=== PATIENT | male | born 1975 | race Caucasian/White ===

== ENCOUNTER 2023-09-05 09:37 | Emergency (ER) | payer MEDICARE, MEDICAID, SELFPAY ==
--- NOTE | 2023-09-05 09:39 | XRR_ITS ---
PROCEDURE INFORMATION: Exam: XR Left Ankle Exam date and time: 09/05/2023 10:01 AM Age: 48 years old Clinical indication: Injury or trauma; Other: Jumped off moving trailer; Blunt trauma; Ankle; Left TECHNIQUE: Imaging protocol: Radiologic exam of the left ankle. Views: 3 or more views. COMPARISON: No relevant prior studies available. FINDINGS: Bones/joints: Couple of small thin cortical fragments adjacent to the medial malleolus and medial talus. Mineralization is normal and joints are maintained with minimal spurring of the anterior tibial plafond and trace Achilles insertional enthesophyte. Soft tissues: Medial ankle soft tissue swelling. Effacement of Kager's fat. XR/XR ankle LT min 3V* [id number] IMPRESSION: 1. Medial ankle injury with small cortical avulsion fractures. 2. Effaced Kager's fat is nonspecific, but may represent posttraumatic edema or hematoma.
[2023-09-05 09:53] VITALS: BP 172/119; PULSE 104; RESP 18; TEMP 36.8; O2SAT 93; BMI 31.5
[2023-09-05 09:59] VITALS: O2SAT 98
--- NOTE | 2023-09-05 09:59 | ED_ITS ---
HPI - Extremity Injury (Lower) General: Chief Complaint: Extremity Injury, Lower Stated Complaint: fall, left ankle injury Time Seen by Provider: 09/05/23 09:41 Source: patient Mode of arrival: wheelchair Limitations: no limitations History of Present Illness: Patient is a 48-year-old male who presents to ED today for evaluation of a left foot and ankle injury that he sustained just prior to arrival after jumping off of a moving trailer. Patient states he is able to bear a very small amount of weight on the ankle but is exquisitely tender. He has no other injuries or complaints at this time. complaint: ankle injury and foot injury Onset (ago): hour(s) Injury: Left: ankle and foot Place: home Severity: moderate Relieving factors: immobilization Exacerbating factors: weight bearing, movement and palpation Context: fall Associated symptoms: Reports inability to bear weight Other symptoms: none Review of Systems Musc: Reports: extremity pain (L foot), joint pain (L ankle) and joint swelling (L ankle) Neuro: Denies: numbness in extremities or sensory changes Physical Exam Const: COMMON NORMALS: no acute distress, no limitations, healthy appearing, alert and well nourished Extremity: COMMON NORMALS: capillary refill normal and no calf tenderness GENERAL: Yes normal exam except as noted LEFT LOWER EXTREMITY: Yes ankle joint (tenderness/swelling throughout ankle joint more so medially) Left ankle: Yes ROM (limited secondary to pain) and Yes neurovascular exam (normal) and Yes foot & digits (TTP proximal dorsal foot; no obvious swelling noted) Left foot and digits: Yes neurovascular exam (normal) Neuro: COMMON NORMALS: moves all extremities, no focal motor deficits and no sensory deficits noted SENSORIUM/ORIENTATION: Yes alert Skin: COMMON NORMALS: no rashes or lesions noted GENERAL SKIN EXAM: no rashes or lesions noted Course Vital Signs: Vital signs: Vital Signs Temperature 98.2 F 09/05/23 09:53 Pulse Rate 104 H 09/05/23 09:53 Respiratory Rate 18 09/05/23 09:53 Blood Pressure 172/119 09/05/23 09:53 Pulse Oximetry 98 09/05/23 09:59 Oxygen Delivery Me thod Room Air 09/05/23 09:59 MDM - Extremity Injury (Lower) Medical Decision Making Personal interpretations of left foot/ankle XRs show some avulsion fragments seen on ankle films with donor site most likely from the talus. Patient will be splinted, given crutches with instructions for no weightbearing, and will follow-up with orthopedics/podiatry for further evaluation. XR interpretation done by ED provider, pending radiology final review Discharge Plan Discharge Patient Disposition: Home Clinical Impression: Avulsion fracture of left talus Qualifiers: Encounter type: initial encounter Fracture type: closed Fracture alignment: nondisplaced Qualified Code(s): S92.155A - Nondisplaced avulsion fracture (chip fracture) of left talus, initial encounter for closed fracture Condition: Stable Prescriptions: New hydrocodone-acetaminophen 5-325 mg tablet 1 tab PO Q6H PRN (Reason: pain) Qty: 14 0RF Discharge Orders: Discharge ED (Routine); Ordered 09/05/23 Ordered By: Dionne Dodd Referrals: Lucio Aguirre DO [Primary Care Provider] - Patient Instructions: Opioid Safety, Pain Management Activity Restrictions/Additional Instructions: As we discussed you need to stay in your splint and no weightbearing until told otherwise by orthopedics. Case management should reach out to you later this week to help set you up with this follow-up appointment. Coding Level of Care Code ED Certified Green Building Engineer for Arlene Holcomb
--- NOTE | 2023-09-05 09:59 | XRR_ITS ---
PROCEDURE INFORMATION: Exam: XR Left Foot Exam date and time: 09/05/2023 10:02 AM Age: 48 years old Clinical indication: Injury or trauma; Other: Jumped off moving trailer; Blunt trauma; Foot; Left TECHNIQUE: Imaging protocol: Radiologic exam of the left foot. Views: 3 or more views. COMPARISON: CR XR ankle LT min 3V* [id number] 09/05/2023 10:01 AM FINDINGS: Bones/joints: No acute fracture or dislocation. Mineralization is normal. Joint spacing and alignment are maintained. Minimal spurring of the anterior tibial plafond and trace Achilles insertional enthesophyte. Soft tissues: Effaced Kager's fat as seen on comparison ankle radiographs. Medial ankle soft tissue swelling. XR/XR foot LT min 3V* [id number] IMPRESSION: No acute fracture or dislocation of the foot.
[2023-09-05 10:41] VITALS: RESP 18; O2SAT 91
[2023-09-05] MEDS: morphine 4 mg/mL SDV 1 mL IM (10:41)
[2023-09-05 10:42] VITALS: BP 171/114; PULSE 98; RESP 18; O2SAT 90
[2023-09-05 10:50] VITALS: BP 171/114; PULSE 104; RESP 18; O2SAT 90
--- NOTE | 2023-09-05 13:14 | PC.SOCIAL ---
Ortho Referral Referral to clinic at this time. Clinic to contact patient with appt date/time.
== END 2023-09-05 10:57 | disposition home or self-care (01) ==
PROVIDERS: Emergency Provider Physician Assistant; PCP Family Medicine
DX: S92.155A Nondisplaced avulsion fracture (chip fracture) of left talus, initial encounter for closed fracture (principal); W17.89XA Other fall from one level to another, initial encounter
CPT/HCPCS: 29515; 73610; 73630; 96372; 99284; J2270

== ENCOUNTER 2023-09-06 16:05 | Outpatient (CLI) | payer MEDICARE, MEDICAID, SELFPAY | END 2023-09-06 16:06 | disposition home or self-care (01) | LOC: SPT 16:07 | PROVIDERS: PCP Family Medicine; Visit Provider Podiatrist Foot & Ankle Surgery | DX: Z46.89 Encounter for fitting and adjustment of other specified devices (principal); S92.155D Nondisplaced avulsion fracture (chip fracture) of left talus, subsequent encounter for fracture with routine healing; X58.XXXD Exposure to other specified factors, subsequent encounter | CPT/HCPCS: 97760; 99203; L4361 ==

== ENCOUNTER 2023-09-20 14:59 | Outpatient (CLI) | payer MEDICARE, MEDICAID, SELFPAY | END 2023-09-20 15:00 | disposition home or self-care (01) | LOC: SPT 15:00 | PROVIDERS: PCP Family Medicine; Visit Provider Podiatrist Foot & Ankle Surgery | DX: Z46.89 Encounter for fitting and adjustment of other specified devices (principal); S92.152D Displaced avulsion fracture (chip fracture) of left talus, subsequent encounter for fracture with routine healing; X58.XXXD Exposure to other specified factors, subsequent encounter | CPT/HCPCS: 97760; 99213; L1902 ==

== ENCOUNTER 2025-02-25 22:24 | Observation (INO) | payer MEDICARE, SELFPAY ==
[2025-02-25 22:26] VITALS: BP 168/105; PULSE 85; RESP 18; TEMP 36.8; O2SAT 95; BMI 33.1
--- NOTE | 2025-02-25 22:31 | ECG_ITS ---
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 Measurements Intervals [place] Rate: 91 P: 67 [place]: 128 QRS: 70 QRSD: 99 T: -61 QT: 338 QTc: 417 Interpretive Statements SINUS RHYTHM MODERATE T-WAVE ABNORMALITY, CONSIDER LATERAL ISCHEMIA [-0.1+ mV T-WAVE IN I/aVL/V5/V6] MODERATE T-WAVE ABNORMALITY, CONSIDER INFERIOR ISCHEMIA [-0.1+ mV T-WAVE IN II/aVF] No previous ECG available for comparison Electronically Signed On 02-26-2025 17:34:35 CDT by Geraldo Hammond M.D. [email or web address] [id number]
--- NOTE | 2025-02-25 22:36 | XRR_ITS ---
PROCEDURE INFORMATION: Exam: XR Chest Exam date and time: 02/25/2025 10:50 PM Age: 49 years old Clinical indication: Chest pressure; Chest pain/pressure; HTN; Elevated hr TECHNIQUE: Imaging protocol: Radiologic exam of the chest. Views: 1 view. COMPARISON: No relevant prior studies available. FINDINGS: Lungs: Unremarkable. No consolidation. Calcified right lung granulomas. Pleural spaces: Unremarkable. No pleural effusion. No pneumothorax. Heart/Mediastinum: Unremarkable. No cardiomegaly. Bones/joints: Unremarkable. XR/XR chest 1V portable [id number] IMPRESSION: No acute findings.
--- NOTE | 2025-02-25 22:56 | W.ED.CHESTPA ---
HPI - Chest Pain General: Chief Complaint: Chest Pain Stated Complaint: Chest Pressure Time Seen by Provider: 02/25/25 22:43 History of Present Illness: 49-year-old man with history of hypertension,, hyperlipidemia who presents to the emergency room with chest pain. He says he has been having a mild chest pressure. He feels slightly short of breath. Says his blood pressure has been elevated and has been keeping a log. His doctor had increased his lisinopril recently and he took an extra dose today but his pressure was still up and he had also developed the chest pressure so he came to the emergency room. No new cough. No nausea or vomiting. No abdominal pain. No altered mental status. Related Data Home Medications ?Medication ?Instructions ?Recorded ?Confirmed albuterol sulfate 90 mcg/actuation g inhalation 09/06/23 08/16/24 aerosol inhaler atorvastatin 20 mg tablet tab PO 09/06/23 08/16/24 budesonide-formoterol HFA 160 g inhalation 09/06/23 08/16/24 mcg-4.5 mcg/actuation aerosol inhaler (Symbicort) cyclobenzaprine 10 mg tablet ea PO 09/06/23 08/16/24 esomeprazole magnesium 40 mg ea PO 09/06/23 08/16/24 capsule,delayed release levofloxacin 500 mg tablet tab PO 09/06/23 08/16/24 prednisone 20 mg tablet tab PO 09/06/23 08/16/24 quetiapine 200 mg tablet ea PO 09/06/23 08/16/24 testosterone cypionate 200 mg/mL 200 mg SUBCUT 09/06/23 08/16/24 intramuscular oil Previous Rx's ?Medication ?Instructions ?Recorded hydrocodone 5 mg-acetaminophen 325 1 tab PO Q6H PRN pain #14 tabs 09/05/23 mg tablet Cam Boot to left #1 ea 09/06/23 hydrocodone 5 mg-acetaminophen 325 1 tab PO Q8H PRN pain 7 days #21 09/06/23 mg tablet tabs ASO to left #1 ea 09/20/23 hydrocodone 5 mg-acetaminophen 325 1 tab PO Q6H PRN pain 5 days #20 08/16/24 mg tablet tabs prednisone 20 mg tablet 20 mg PO DAILY 5 days #15 tabs 08/16/24 Allergies Allergy/AdvReac Type Severity Reaction Status Date / Time Sulfa (Sulfonamide Allergy ADR-Nausea Verified 08/16/24 11:57 Antibiotics) Review of Systems Narrative: Constitutional symptoms: Negative except as documented in HPI. Skin symptoms: Negative except as documented in HPI. Eye symptoms: Negative except as documented in HPI. ENMT symptoms: Negative except as documented in HPI. Respiratory symptoms: Negative except as documented in HPI. Cardiovascular symptoms: Negative except as documented in HPI. Gastrointestinal symptoms: Negative except as documented in HPI. Genitourinary symptoms: Negative except as documented in HPI. Musculoskeletal symptoms: Negative except as documented in HPI. Neurologic symptoms: Negative except as documented in HPI. Psychiatric symptoms: Negative except as documented in HPI. Endocrine symptoms: Negative except as documented in HPI. PFSH ED PFSH: Social History Smoking and tobacco/nicotine status: unknown if used tobacco/nicotine Physical Exam Narrative: EXAM NARRATIVE: General: Alert, no acute distress. Skin: Warm, dry. Head: Normocephalic, atraumatic. Neck: Supple, trachea midline. Eye: Extraocular movements are intact. Ears, nose, mouth and throat: mucosa moist. Cardiovascular: Regular, Normal peripheral perfusion. Respiratory: Lungs are clear to auscultation, respirations are non-labored, breath sounds are equal, Symmetrical chest wall expansion. Gastrointestinal: Soft, Nontender, Non distended Musculoskeletal: Normal ROM, no deformity. Neurological: Alert and oriented, No focal neurological deficit observed. Psychiatric: Cooperative, appropriate mood & affect. Course Vital Signs: Vital signs: Vital Signs Temperature 98.2 F 02/25/25 22:26 Pulse Rate 105 H 02/26/25 00:23 Respiratory Rate 23 H 02/26/25 00:23 Blood Pressure 138/89 02/26/25 00:23 Pulse Oximetry 94 02/26/25 00:23 Oxygen Delivery Me thod Room Air 02/25/25 23:18 MDM - Chest Pain Medical Decision Making Differential diagnosis for patient with chest pain includes but is not limited to and based on the above HPI, review of systems and physical exam: Pneumonia. unstable angina. angina. Acute coronary syndrome / CT. Pulmonary embolism. Costochondritis / musculoskeletal. Pleurisy. Pericarditis. Esophageal spasm. Pancreatis. Cholecystitis. Orders placed to evaluate differential diagnosis based on the above differential, HPI and physical exam EKG: Time 2230. Rate 91. Normal sinus rhythm, nonspecific ST changes, no ectopy, normal OK & QRS intervals, This was reviewed and interpreted by myself the ER physician at 2234. No previous EKGs for comparison Chest x-ray: No acute process. No infiltrate. No pneumothorax. This was reviewed and interpreted by myself the emergency room physician. I also reviewed the radiology report. Lab Review: Laboratory results were reviewed and interpreted by myself the emergency room physician. No leukocytosis. No anemia. Mild renal insufficiency with a BUN/creatinine of 13 and 1.3. No comparisons. Initial troponin is negative. HEART Pathway for Early Discharge in Acute Chest Pain from [employer] on 02/26/2025 All calculations should be rechecked by clinician prior to use RESULT SUMMARY: 5 points HEART Pathway Score High risk 12-65% 30-day MACE Admit to hospital or observation. Further testing indicated. INPUTS: History ?> 1 = Moderately suspicious EKG ?> 1 = Non-specific repolarization disturbance Age ?> 1 = 45-64 Risk factors ?> 2 = >= risk factors or history of atherosclerotic disease Initial troponin ?> 0 = <=ormal limit I reviewed the patient's medical record. No records available here. Reexamination: Patient remained stable. No increased work of breathing. No altered mental status. No focal motor deficits. Patient's chest pain and blood pressure improved with nitroglycerin. No increased work of breathing. No altered mental status. Consultation: I spoke with Dr. Land who agrees to admission. Assessment and plan: Chest pain ?Blood pressure and pain improved with nitroglycerin. -I discussed the patient with the hospitalist on-call who is admitting the patient. - Discussed findings and plan with patient. Answered any questions. - All laboratory values were reviewed and interpreted personally by myself, the ER physician - All imaging was reviewed and interpreted personally by myself, the ER physician. - Evaluation and treatment of this problem were appropriate in the emergency setting Lab Data 02/25/25 23:20 02/25/25 23:20 Radiology Impressions Chest X-Ray 02/25/25 22:36 IMPRESSION: No acute findings. Laboratory Results WBC 8.84 10^3/uL (3.29-11.43) 02/25/25 23:20 RBC 5.18 10^6/uL (3.85-5.65) 02/25/25 23:20 Hgb 15.50 g/dL (11.27-16.99) 02/25/25 23:20 Hct 45.0 % (37-53) 02/25/25 23:20 MCV 86.9 fl (82-101) 02/25/25 23:20 MCH 29.9 pg (27-33) 02/25/25 23:20 MCHC 34.4 g/dL (30-55) 02/25/25 23:20 RDW 12.7 % (12.1-15.1) 02/25/25 23:20 Plt Count 254 10^3/cmm (157-399) 02/25/25 23:20 MPV 10.5 fL (7.4-10.4) H 02/25/25 23:20 Neut % (Auto) 85.3 % 02/25/25 23:20 Lymph % (Auto) 9.3 % 02/25/25 23:20 [place] % (Auto) 3.6 % 02/25/25 23:20 Eos % (Auto) 0.9 % 02/25/25 23:20 Baso % (Auto) 0.3 % 02/25/25 23:20 Neut # (Auto) 7.54 10^3/uL (1.8-7.7) 02/25/25 23:20 Lymph # (Auto) 0.8 10^3/uL (0.8-4.8) 02/25/25 23:20 [place] # (Auto) 0.3 10^3/uL (0.2-0.9) 02/25/25 23:20 Eos # (Auto) 0.1 10^3/uL (0.0-0.8) 02/25/25 23:20 Baso # (Auto) 0.0 10^3/uL (0.0-0.1) 02/25/25 23:20 Nucleated RBC % (auto) 0 % 02/25/25 23:20 Nucleated RBCs # 0.0 /100WBC 02/25/25 23:20 Sodium 139 mmol/L (136-145) 02/25/25 23:20 Potassium 3.6 mmol/L (3.5-5.1) 02/25/25 23:20 Chloride 102 mmol/L (98-107) 02/25/25 23:20 Carbon Dioxide 22 mmol/L (22-29) 02/25/25 23:20 Anion Gap 18.6 (5-19) 02/25/25 23:20 BUN 13 mg/dL (6-20) 02/25/25 23:20 Creatinine 1.3 mg/dL (0.7-1.2) H 02/25/25 23:20 GFR Calculation 58.9 mL/min (90-130) L 02/25/25 23:20 Glucose 196 mg/dL (65-115) H 02/25/25 23:20 Calculated Osmolality 294 mOsm/kg (285-295) 02/25/25 23:20 Calcium 9.6 mg/dL (8.5-10.5) 02/25/25 23:20 Total Bilirubin 0.4 mg/dL (0.15-1.2) 02/25/25 23:20 AST 18 U/L (0-40) 02/25/25 23:20 ALT 31 U/L (0-41) 02/25/25 23:20 Alkaline Phosphatase 77 U/L (40-130) 02/25/25 23:20 Troponin T Baseline 7 ng/L (0-15) 02/25/25 23:20 NT-Pro-B Natriuret Pep 37 pg/mL (0-125) 02/25/25 23:20 Total Protein 7.3 g/dL (6.6-8.7) 02/25/25 23:20 Albumin 4.9 g/dL (3.5-5.2) 02/25/25 23:20 Globulin 2.4 g/dL (1.3-4.6) 02/25/25 23:20 All radiology interpretation(s) finalized by discharge Discharge Plan Discharge Patient Disposition: Placed in Observation Clinical Impression: Chest pain Coding Level of Care Code ED Electric Organ Assembler And Checker for Arlene Holcomb
[2025-02-25 23:18] VITALS: BP 153/98; PULSE 88; RESP 16; O2SAT 92
[2025-02-25] MEDS: nitroglycerin 0.4 mg sublingual Tablet SUBLINGUAL (23:19)
[2025-02-25] MEDS: aspirin 81 mg Chew Tablet 324 MG PO (23:19)
[2025-02-25 23:35] LABS: Basophils % 0.3 %; Eosinophils # 0.1 10^3/uL (0.0-0.8); Eosinophils % 0.9 %; Lymphocytes # 0.8 10^3/uL (0.8-4.8); Lymphocytes % 9.3 %; Mean Corpuscular HGB Conc 34.4 g/dL (30-55); Mean Corpuscular Hemoglobin 29.9 pg (27-33); Mean Corpuscular Volume 86.9 fl (82-101); Mean Platelet Volume 10.5 fL (7.4-10.4); Monocytes # 0.3 10^3/uL (0.2-0.9); Monocytes % 3.6 %; Neutrophils # 7.54 10^3/uL (1.8-7.7); Neutrophils % 85.3 %; Nucleated Red Blood Cells % 0 %; Platelet Count 254 10^3/cmm (157-399); Red Blood Count 5.18 10^6/uL (3.85-5.65); Red Cell Distribution Width 12.7 % (12.1-15.1); White Blood Count 8.84 10^3/uL (3.29-11.43)
[2025-02-25 23:44] LABS: Troponin(5th) Baseline 7 ng/L (0-15)
[2025-02-25 23:59] LABS: Alanine Aminotransferase 31 U/L (0-41); Albumin Level 4.9 g/dL (3.5-5.2); Alkaline Phosphatase 77 U/L (40-130); Anion Gap 18.6 (5-19); Aspartate Amino Transferase 18 U/L (0-40); Blood Urea Nitrogen 13 mg/dL (6-20); Calcium 9.6 mg/dL (8.5-10.5); Carbon Dioxide 22 mmol/L (22-29); Chloride 102 mmol/L (98-107); Creatinine Clr Calc Pharmacy 84.2468; Globulin 2.4 g/dL (1.3-4.6); Glomerular Filtration Rate 58.9 mL/min (90-130); Glucose 196 mg/dL (65-115); NT Pro B Type Natriuretic Pept 37 pg/mL (0-125); Osmolality Calculated 294 mOsm/kg (285-295); Potassium 3.6 mmol/L (3.5-5.1); Sodium 139 mmol/L (136-145); Total Bilirubin 0.4 mg/dL (0.15-1.2); Total Protein 7.3 g/dL (6.6-8.7)
[2025-02-26] VITALS (41 sets, daily range): BP systolic 138–180; BP diastolic 89–117; PULSE 72–108; RESP 12–25; TEMP 36.6–36.9; O2SAT 91–98; BMI 31.7
--- NOTE | 2025-02-26 00:35 | ECG_ITS ---
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1975 Requested By: Ansley Murphy Order Number: [id number] Reading MD: SUSANNA FRANKS Measurements Intervals [place] Rate: 72 P: 62 [place]: 147 QRS: 74 QRSD: 96 T: 64 QT: 384 QTc: 421 Interpretive Statements SINUS RHYTHM ST DEVIATION AND MODERATE T-WAVE ABNORMALITY, CONSIDER LATERAL ISCHEMIA [-0.1+ mV T-WAVE IN I/aVL/V5/V6] ST DEVIATION AND MODERATE T-WAVE ABNORMALITY, CONSIDER INFERIOR ISCHEMIA [-0.1+ mV T-WAVE IN II/aVF] Compared to ECG 02/25/2025 22:31:29 No significant changes Electronically Signed On 03-01-2025 21:55:08 CDT by SUSANNA FRANKS [id number] [id number]
--- NOTE | 2025-02-26 01:33 | PM.HP ---
Providers/Chief Complaint Admitting Physician: Eliana Land Primary Care Provider: Lucio Aguirre DO & Dr. Rodriguez Chief Complaint: Chest Pressure History of Present Illness Sonya Phelps . Tony Phelps Jr is a 50 year old male w/ COPD, HTN, HLD, severe GERD, chronic back pain due to hx of 4 back surgeries including L-spine (L3-4-5) fusion & b/l R>>>L sciatica, Anxiety, and MDD, who presented to the ED on the night of 02/25/2025 w/ complaints of chest pain and pressure. The patient states that he has had HTN for at least 20yrs, but refused to take any medications. His PCP put him on 10mg of Lisinopril about 8 months ago. Two to 3 months ago his Lisinopril dose was increased to 20mg. On 02/24/2025 he went to get a steroid injection in his back for sciatic nerve and prior to the procedure, he was found to have a BP of 180/145mmHg. He was told to follow up with his PCP. He called his PCP on 02/25, who increased his Lisinopril to 40mg daily. Since he already took Lisinopril 20mg in the AM, he took another Lisinopril 20mg after 3pm. At 3pm, he noticed that his BP was elevated to 177/111mmHg. His BP worsened to 192/124mmHg around 4:30pm. Towards the evening, he states that he started to feel non-radiating chest pressure and pain as if someone was sitting in his chest. He felt diaphoretic, confused, trembling, and had b/l temporal headaches which was atypical for him. He tends to have frontal headaches. He also complained of severe generalized weakness, as if he would collapse, but not lose consciousness. He endorses chills, SOB,. He denies palpitations, except in the ED when his HR increased to 130bpm. He also denies palpitations, GI or symptoms. He He states that he has had chest pains on and off about 2-3 years but because they come and go, he never did anything about them. In the ED, his vital signs are significant for elevated BP of 168/105, tachycardia of 105bpm, RR of 23. His CXR showed no acute findings. His EKG showed TWI in leads II, III, AVF, V4, V5, and V6; flat Twaves in I & AVL; 1mm ST depressions in V4, V5, and V6. He was given full dose Aspirin 324mg x 1 and 0.4mg of SL NTG, which he says improved his chest pain by 70%. Review of Systems Narrative: Constitutional: (-) fever(s), (+) chills, (-) body aches, (-) change in appetite, (-) change in weight, (-) fatigue, (-) malaise, (-) night sweats, (+) diaphoresis Eyes: (-) change in vision, (-) blurry vision, (-) diplopia, (-) floaters, ENT: (-) ear pain, (-) ear discharge, (-) aural fullness, (-) tinnitus, (-)nasal discharge, (-)nasal congestion, (-) post nasal drip, (-)dysphagia, (-)odynophagia, (-)hoarseness, Card: (+) Chest pain, (+) palpitations, (-) pedal edema, (-) orthopnea, (-) lightheadedness, (-) syncope, (-) pre-syncope, (-) leg pain with exertion Resp: (+)dyspnea, (-)dyspnea on exertion, (-) cough, (-) wheezing, (-) hemoptysis GI: (-) abdominal pain, (-) nausea, (-) vomiting, (-) hematemesis, (-) diarrhea, (-) constipation, (-) hematochezia, (-) melena : (-) flank pain, (-) dysuria, (-) hematuria, (-) urinary urgency, (-) urinary frequency, (-)oliguria, (-) difficulty voiding, MSK: (-) myalgias, (+) arthralgias -chronic back pain Skin/Breast: (-) rash, (-) sores, (-) new lesions, (-) breast tenderness, (-) breast pain, or (-) nipple discharge Neuro: (+) headaches, (-) dizziness, (+) generalized weakness, (-) weakness in the extremities, (-) numbness in extremities, (-) tingling, (-) frequent falls, (-) Slurred speech present, (-) seizure-like activity, Psych: (+) anxiety, (+) depression, (-)paranoia, (-) visual hallucinations, (-) auditory hallucinations, (-)tactile hallucinations, (-) suicidal ideation, (-) homicidal ideation Endo: (-) polyuria, (-) polydipsia, (-) polyphagia, (-)cold intolerance, (+) heat intolerance Heme/Lymph: (-) easy bruising, (-) easy bleeding, (-) petechiae, (-) purpura, (-) enlarged lymph nodes, (-) tender lymph nodes Allergy/Immunlogy: (-) food intolerance, (-) hives/urticaria, (-) itchy/watery eyes, (-) tongue/throat swelling, (-) facial swelling, Medications/Allergies Home Medications ?Medication ?Instructions ?Recorded ?Confirmed ?Last Taken ?Type hydrocodone 5 mg-acetaminophen 325 1 tab PO Q6H PRN pain #14 tabs 09/05/23 08/16/24 Unknown Rx mg tablet [place] to left #1 ea 09/06/23 08/16/24 Unknown Rx albuterol sulfate 90 mcg/actuation g inhalation 09/06/23 08/16/24 Unknown History aerosol inhaler atorvastatin 20 mg tablet tab PO 09/06/23 08/16/24 Unknown History budesonide-formoterol HFA 160 g inhalation 09/06/23 08/16/24 Unknown History mcg-4.5 mcg/actuation aerosol inhaler (Symbicort) cyclobenzaprine 10 mg tablet ea PO 09/06/23 08/16/24 Unknown History esomeprazole magnesium 40 mg ea PO 09/06/23 08/16/24 Unknown History capsule,delayed release hydrocodone 5 mg-acetaminophen 325 1 tab PO Q8H PRN pain 7 days #21 09/06/23 08/16/24 Unknown Rx mg tablet tabs levofloxacin 500 mg tablet tab PO 09/06/23 08/16/24 Unknown History prednisone 20 mg tablet tab PO 09/06/23 08/16/24 Unknown History quetiapine 200 mg tablet ea PO 09/06/23 08/16/24 Unknown History testosterone cypionate 200 mg/mL 200 mg SUBCUT 09/06/23 08/16/24 Unknown History intramuscular oil ASO to left #1 ea 09/20/23 08/16/24 Unknown Rx hydrocodone 5 mg-acetaminophen 325 1 tab PO Q6H PRN pain 5 days #20 08/16/24 08/16/24 Unknown Rx mg tablet tabs prednisone 20 mg tablet 20 mg PO DAILY 5 days #15 tabs 08/16/24 08/16/24 Unknown Rx Allergies Allergy/AdvReac Type Severity Reaction Status Date / Time gabapentin Allergy Unknown Unknown Verified 02/26/25 05:21 pseudoephedrine Allergy Unknown Unknown Verified 02/26/25 05:21 Sulfa (Sulfonamide Allergy ADR-Nausea Verified 08/16/24 11:57 Antibiotics) PFSH Acute PFSH: Medical History (Updated 02/26/25 @ 06:21 by Eliana Land MD) MDD (major depressive disorder) Has taken Prozac and Xanax and many other types of SSRIs etc. He quit taking the meds 2 yrs ago in 2022 and has felt fine since, except for occasional episodes of anxiety Anxiety disorder Has taken Prozac and Xanax and many other types of SSRIs etc. He quit taking the meds 2 yrs ago in 2022 and has felt fine since, except for occasional episodes of anxiety Chronic low back pain with bilateral sciatica GERD (gastroesophageal reflux disease) Hyperlipidemia COPD (chronic obstructive pulmonary disease) HTN (hypertension) Surgical History (Updated 02/26/25 @ 05:46 by Eliana Land MD) History of surgery on upper extremity History of nasal surgery History of appendectomy History of carpal tunnel surgery Family History (Updated 02/26/25 @ 05:41 by Eliana Land MD) Father Diabetes mellitus, type 2 Other Osteoporosis Social History (Updated 02/26/25 @ 05:40 by Eliana Land MD) Smoking and tobacco/nicotine status: current every day tobacco/nicotine user cigarettes Packs smoked per day: 2 Years cigarettes smoked: 34 [ Other cigarette details: started smoking at age 12. Started 2ppd by age 15 to 16. ] Quit status (tobacco/nicotine): has tried quititng Alcohol intake: current Alcohol intake frequency: holidays/special occasions only Alcohol use comment: May 29 and s Maddy. He has the tolerance of a 10yo girl. Substance/Drug Use: current Substance/Drug use type: Marijuana Other substance/drug use details: consumes it as edibles. Smoking chokes him. Quit Meth etc in 05/27/2001 Additional social history: Primarily used (smoked,snorted,IV) and cooked Methamphetamines. Has tried every drug except Heroine, Fentanyl. Marital status: Vitals/I&O/Wt Last Vital Signs Temp 98.2 F 02/25/25 22:26 Pulse 105 H 02/26/25 00:23 Resp 23 H 02/26/25 00:23 BP 138/89 02/26/25 00:23 Pulse Ox 94 02/26/25 00:23 O2 Del Method Room Air 02/25/25 23:18 Weight last 48 hrs Weight 104.78 kg Physical Exam Narrative: Constitutional: GENERAL APPEARANCE: cooperative, comfortable and appears older than stated age; not combative, not disheveled, not ill appearing and not frail appearing HENT: HEAD & SCALP: normocephalic and atraumatic; NOSE: external nose not normal EXTERNAL EAR: no external ears normal MOUTH: Normal oral and palatal mucosa present THROAT: posterior oropharynx normal Eye: PERRL, EOMI, normal conjunctiva b/l Neck: normal visual inspection, trachea midline, No anterior neck swelling, No tracheal deviation, No tracheostomy present, no submandibular swelling, Thyroid normal , cervical ROM normal Lymph: no cervical, supraclavicular LAD Resp: no use of accessory muscles, CTAB, no w/r/r Cardio: RRR, no m/r/g, or clicks. 2+ radial and DP pulses. GI: normoactive bowel sounds, non-tender, non-distended, no guarding, no rigidity, no rebound tenderness, no hepatosplenomegaly. : (-) Brower in place draining urine Back/Pelvis: Deferred Extremity: No clubbing, No cyanosis and No edema Neuro: AO to person, place and time. CN normal except as noted. Normal gait present. 5/5 motor strength present throughout. Normal motor muscle tone present throughout. No tremor noted. No motor abnormalities present. Psych: APPEARANCE: Yes grossly normal ATTITUDE: Yes calm and Yes engaged ACTIVITY/MOTOR BEHAVIOR: Yes appropriate eye contact SPEECH: Yes normal speech MOOD & AFFECT: Yes euthymic mood THOUGHT PROCESS: ___ THOUGHT CONTENT: ___ ATTENTION/CONCENTRATION: Yes attention grossly intact MEMORY/COGNITION: Yes memory grossly intact Data 02/25/25 23:20 02/25/25 23:20 A&P Assessment and plan (1) Unstable angina: Plan Tony Phelps Jr is a 50 year old male w/ COPD, HTN, HLD, severe GERD, chronic back pain due to hx of 4 back surgeries including L-spine (L3-4-5) fusion & b/l R>>>L sciatica, Anxiety, and MDD, who presented to the ED on the night of 02/25/2025 w/ complaints of chest pain and pressure. #Unstable Angina: -The patient gets his care primarily at [facility], and has gotten his care there for over 30 years, so he would really like to go back there. He does not want to have too many extensive tests done here at [facility]. I have informed him that any major decisions would be a joint decision between him and our Continuous Improvement Specialist. -Given his wish to going get his major care done at [facility], I have held off on ordering an ultrasound. -ACS protocol has been initiated w/ Aspirin and Lovenox. F/u labs - TSH/A1c, lipid panel. -Hydralazine IVP prn ordered -Recommend cardiology consult in the morning. #Possible BENTON: Unclear baseline. Ordered IVF. #COPD: Defer resumption of home meds to the Day hospitalist. #HTN: Defer resumption of home meds to the Day hospitalist. #Anxiety/DO: Dx'ed at age 19. On Seroquel daily. Defer resumption of home meds to the Day hospitalist. #Low Libido: On Testosterone. #chronic back pain: hx of 4 back surgeries including L-spine (L3-4-5) fusion & b/l R>>>L sciatica #Tobacco use d/o: Counseled the patient on quitting. Will order nicotine patches and prn lozenges DVT ppx: Lovenox PDMP PDMP Reviewed: Not Reviewed Attestations Medical Necessity Statement*: The patient needs to be hospitalized for unstable angina with concerning EKG changes. He may very well require a heart catheterization. Time Spent in Patient Care: >75 minutes was spent obtaining a very detailed history from the patient and his , given that he is new to this hospital system, examining the patient, reviewing labs, images, formulating a plan, coordinating care, and communicating the plan with to the patient. Coding Level of Care Code 35058 High Time for a total of 75 minutes, includes reviewing past or interval history, examining/interviewing patient, placing orders, counseling patient/family/other support, updating patient/family/other support, discussing plan of care with staff, communicating with other healthcare providers, documenting encounter and coordinating care Diagnoses Unstable angina I20.0
[2025-02-26 02:09] LABS: INR 0.94 (0.8-1.2)
[2025-02-26 02:10] LABS: Partial Thromboplastin Time 28.4 SECONDS (23.9-36.7)
[2025-02-26 02:24] LABS: Bacteria Urine None Seen /hpf; Hyaline Casts Urine 0-4 /lpf; RBC Urine 0-2 /hpf (0-2); Squamous Epithelial Cell Urine 0-5 /hpf (0-5); WBC Urine 0-5 /hpf (0-5)
[2025-02-26 02:33] LABS: Amphetamines Screen Urine Negative (Negative); Barbiturates Screen Urine Negative (Negative); Benzodiazepines Screen Urine Negative (Negative); Cocaine Screen Urine Negative (Negative); Opiate Screen Urine Negative (Negative); PCP Screen Urine Negative (Negative); Protein Urine Neg (Negative); THC Screen Urine Positive (Negative); Urine Appearance Clear (CLEAR); Urine Color Yellow (Yellow); pH Urine 5 (5-7)
[2025-02-26 02:34] LABS: Add Urine Microscopic? YES; Bilirubin Urine Neg (Negative); Blood Urine Neg (Negative); Glucose Urine UA Norm (Normal); Ketones Urine Negative (Negative); Leukocyte Esterase Urine Negative (Negative); Nitrate Urine Negative (Negative); Urobilinogen Urine Neg (Negative)
[2025-02-26] MEDS: sodium chloride 0.9% 1,000 ML 250 ML IV (03:13)
[2025-02-26] MEDS: enoxaparin 100 mg/mL Syringe SUBCUT ×2 (03:13→15:12)
--- NOTE | 2025-02-26 04:36 | ECG_ITS ---
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
[2025-02-26] MEDS: pantoprazole 40 mg SDV IVP (04:55)
[2025-02-26] MEDS: HYDROmorphone 0.5 MG/0.5 ML INJ 1 MG IVP ×3 (04:56→17:55)
[2025-02-26] MEDS: hyDRALAzine 20 mg/mL INJ 1 mL 10 MG IVP ×3 (05:34→17:54)
[2025-02-26] MEDS: nicotine 21 mg Patch 1 PATCH TRANSDERMA (05:44)
[2025-02-26 05:47] LABS: Basophils % 0.3 %; Eosinophils # 0.1 10^3/uL (0.0-0.8); Eosinophils % 0.6 %; Hematocrit 44.4 % (37-53); Mean Corpuscular HGB Conc 34.7 g/dL (30-55); Mean Corpuscular Hemoglobin 30.1 pg (27-33); Mean Corpuscular Volume 86.9 fl (82-101); Mean Platelet Volume 10.5 fL (7.4-10.4); Monocytes # 0.4 10^3/uL (0.2-0.9); Monocytes % 4.8 %; Neutrophils # 7.37 10^3/uL (1.8-7.7); Neutrophils % 82.9 %; Nucleated Red Blood Cells % 0 %; Platelet Count 271 10^3/cmm (157-399); Red Blood Count 5.11 10^6/uL (3.85-5.65); Red Cell Distribution Width 12.9 % (12.1-15.1)
[2025-02-26 06:07] LABS: Troponin 5 6HR 6.38 ng/L (0-15)
[2025-02-26 06:09] LABS: Troponin 5 6HR Delta -0.62 ng/L (0-12)
[2025-02-26 06:12] LABS: Alanine Aminotransferase 29 U/L (0-41); Albumin Level 4.7 g/dL (3.5-5.2); Alkaline Phosphatase 73 U/L (40-130); Anion Gap 16.8 (5-19); Aspartate Amino Transferase 17 U/L (0-40); Blood Urea Nitrogen 13 mg/dL (6-20); Calcium 9.2 mg/dL (8.5-10.5); Carbon Dioxide 24 mmol/L (22-29); Chloride 104 mmol/L (98-107); Creatinine Clr Calc Pharmacy 96.3975; Globulin 2.8 g/dL (1.3-4.6); Glomerular Filtration Rate 71.1 mL/min (90-130); Glucose 116 mg/dL (65-115); Magnesium 2.2 mg/dL (1.7-2.3); Osmolality Calculated 293 mOsm/kg (285-295); Phosphorus 3.7 mg/dL (2.5-4.5); Potassium 3.8 mmol/L (3.5-5.1); Sodium 141 mmol/L (136-145); Total Bilirubin 0.5 mg/dL (0.15-1.2); Total Protein 7.5 g/dL (6.6-8.7)
[2025-02-26 06:13] LABS: Chol HDL Ratio 5.81 mg/dL (1.0-5.00); Cholesterol 279 mg/dL (0-200); HDL Cholesterol 48 mg/dL (60-100); LDL Cholesterol Calculated 206 mg/dL (50-129); LDL HDL Ratio 4.29 RATIO (0.00-3.22); Triglycerides 126 mg/dL (0-150)
[2025-02-26 06:21] LABS: Estmated Average Glucose 108; Hemoglobin A1C 5.4 % (4.0-6.0)
[2025-02-26 06:23] LABS: Free T4 Free Thyroxine 0.99 ng/dL (0.82-1.77); Thyroid Stimulating Hormone 1.02 uIU/mL (0.27-4.20)
[2025-02-26] MEDS: nicotine 4 mg lozenge MUCOUS MEM ×5 (08:18→19:24)
[2025-02-26] MEDS: aspirin 81 mg Chew Tablet PO (08:18)
--- NOTE | 2025-02-26 10:25 | XACV_ITS ---
Exam Room: 2 Ht: 178 cm Wt: 100 kg BSA: 2.25 m2 Gender: Male : 1975 Any Known Allergies: Sulfa Exam Priority: Routine Procedure(s): Procedure Description: Diagnostic procedure Procedure Description: Left Heart Catheterization Procedure Description: Left ventriculography Procedure Description: Coronary Angiography Diagnostic Cath Status: Urgent Diagnostic Findings * Very short left main, almost separate ostia of LAD and left circumflex arteries. No significant disease noted in Left Anterior Descending, Right, or Circumflex coronary arteries. * Coronary angiography shows right dominance. Conclusions 1. Very short left main, almost separate ostia of LAD and left circumflex arteries. No significant disease noted in Left Anterior Descending, Right, or Circumflex coronary arteries. 2. Normal left ventricular systolic function. Ejection fraction of 55%. Recommendations * Aggressive risk factor modification. Blood pressure control. * Outpatient cardiology follow up in 2 weeks. Interventional RX Recommendation: medical therapy and/or counseling Diagnostic RX Recommendation: medical therapy and/or counseling Anticoagulation: Heparin Ventriculography Ejection Fraction: 55.0 % Pressures Phase:Rest AO : 169 / 113 ( 135 ) @ 11:57:00 AM 169 / 106 ( 134 ) @ 12:07:00 PM 169 / 108 ( 136 ) @ 12:07:00 PM LV : 183 / 18 @ 12:05:00 PM 180 / -8 / 18 @ 12:06:00 PM 183 / -8 / 20 @ 12:07:00 PM Valves Phase:DefaultPhase AV : 12.0 @ 11:12:32 AM AV Mean Gradient: 14.0 @ 11:12:32 AM Clinical Evaluation EBL: 5mL-10mL Procedural Details Pre-Procedure Time Out. Identified patient by full name and date of as verbalized by the patient/guarantor. Does the consent match the physician's order: Yes. Accurate & Complete Informed Consent: Yes. Inpatient/Outpatient History & Physical on Chart: Yes. If H&P is completed, is and addenduem needed: No; If yes, is the addendum complete: N/A. Visualize and Verify Site with Patient/Guarantor: N/A. Relevant Radiology Images available: Yes. Pre-op teaching completed and patient verbalized understanding. The risks, benefits, and alternatives of sedation and/or procedure were discussed by physician. The patient agrees to continue. Procedure started. [facility] Clinical Fraility Score: 3: Managing Well. Manager Packaging Indications: Worsening Angina/Unstable Angina. Chest Pain Symptom Assessment: Typical Angina Symptoms. Cardiovascular Instability: No. Correct patient, site and procedure confirmed by cath team. PERRLA. Strong, equal hand hydraulic lift operator bilaterally. Lungs clear x 5 lobes. IV Site on Arrival: 20 gauge in the right anticubital. IV Fluids: 0.9% NaCl at KVO. 900 mL infused prior to sanitation laborer. Pre Procedural Pulses: bilateral radial was 2+. Pre Procedural Pulses: bilateral dorsalis pedis was Doppled. Pre Procedural Pulses: bilateral posterior tibial was Doppled. Oxygen started at 2liters/min via nasal canula. right groin was prepped with chloroprep then draped in the usual sterile fashion. right radial was prepped with chloroprep then draped in the usual sterile fashion. Physician notified. Patient's family in the sanitation laborer waiting room. Dr. Hammond will update at the completion of the procedure. Equipment: 6F - Radial. Cardiac Cath Pack. ACIST Manifold Kit Model BT 2000. Heparinized Saline (2 units/mL), 1000 mL bag. Physician arrived. Baseline sample Acquired. HR: 76 BPM. Physician scrubbed in. Immediate Pre-Procedure Time Out. Correct Patient: Yes; Correct Procedure: Yes; Correct Site: Yes; Correct Patient Position: Yes; Correct Supplies: Yes; Dried Flammable Prep: Yes; Blood Products Available: N/A;. Lidocaine 1% infiltrated to the right radial. Arterial access obtained. A 5 icelandic TIG catheter in over the exchange J wire. Multiple views taken of left coronary artery. Catheter redirected to the RCA. Multiple views taken of right coronary artery. Catheter redirected to the LV. Catheter removed over the exchange J wire. A 5 icelandic Angled Pig catheter in over the exchange J wire. EDP Sample taken: LV 183/1,18; HR: 84 BPM; SpO2: 96%. LV gram performed in SANDERS @ 10 mL/second for a total of 30 mL. EDP Sample taken: LV 180/-9,18; HR: 90 BPM; SpO2: 97%. Pullback taken: LV 183/-9,20; AO 169/106(134); Mean: 14mmHg, Peak to Peak: 12mmHg, SEP: 21sec/min; HR: 85 BPM; SpO2: 97%. Catheter removed over the exchange J wire. Dr. Hammond scrubbed out. A TR Band was successful obtaining hemostatsis at the Right Radial artery insertion site. Post Procedure: Pulses reassessed and unchanged. PERRLA. Strong, equal hand hydraulic lift operator bilaterally. No VTE prophylaxis required. Medication's Wasted: Lidocaine 1% = 18 mL. Medication's Wasted: Nitro = 49.8 mL. Medication's Wasted: Heparin = 1000 units. Medication's Wasted: Other = Versed 1 mg. Total IV fluids: 56 mL. Post-op diagnosis: Non-obstructive CAD. Complications: none. Estimated blood loss: 5mL-10mL. Responsiveness - Normal response to verbal stimuli; alert and oriented, PERRLA. Airway - Unaffected, no intervention required; spontaneous ventilation. Circulation: W/N/L, pulses unchanged. Nausea/Vomiting: No. Medication's Wasted: Other = Fentanyl 100 mcg. Procedure completed. Patient transferred by wheelchair to CPRU. Vital chart was stopped. Access Site Site: Right Radial artery Sheath Size: 6 Fr Hemostasis Method: TR Band Hemostasis Success: Successful Procedure Medications Start: 10:49 AM Stop: 10:49 AM Medication: Versed Amount: 1 mg Route: I.V. Start: 10:49 AM Stop: 10:49 AM Medication: Fentanyl Amount: 50 mcg Route: I.V. Start: 10:53 AM Stop: 10:53 AM Medication: Versed Amount: 1 mg Route: I.V. Start: 10:53 AM Stop: 10:53 AM Medication: Fentanyl Amount: 25 mcg Route: I.V. Start: 10:55 AM Stop: 10:55 AM Medication: Nitrogylcerin Amount: 200 mcg Route: I.A. Start: 10:56 AM Stop: 10:56 AM Medication: Heparin Amount: 5000 units Route: I.V. Start: 10:57 AM Stop: 10:57 AM Medication: Versed Amount: 1 mg Route: I.V. Start: 11:05 AM Stop: 11:05 AM Medication: Fentanyl Amount: 25 mcg Route: I.V. I, the attending physician, have reviewed and verified all procedure medications. Yes, all medications given per verbal order History/Risk Factors Hypertension: Yes Dyslipidemia: Yes Peripheral Arterial Disease (PAD): No Myocardial Infarction (NH): No Obesity: No Renal Disease: No Tobacco Use: Current/Recent(w/in 1 year) Prior Interventions PCI: No CABG: No Valve Surgery: No Report Signatures Finalized by Geraldo Hammond MD on 03/15/2025 09:17 AM
--- NOTE | 2025-02-26 10:43 | W.PM.OPSUD ---
Surgery/Procedure H&P Update DATE OF PROCEDURE: February 26, 2025 DATE H&P PERFORMED: 02/26/25 H&P UPDATE INFORMATION: I have reviewed H&P completed within last 30 days, I have examined patient prior to procedure and No changes to prior documentation PREOP DIAGNOSIS: Unstable angina PRIMARY INDICATION FOR PROCEDURE: Unstable angina PLANNED PROCEDURE: Left heart cath with possible percutaneous coronary intervention PATIENT REASSESSED PRIOR TO SEDATION, WITH NO CHANGE NOTED: Yes PHYSICAL EXAM: alert, oriented x 3, clear to auscultation bilaterally and regular rate & rhythm AIRWAY EVAL/ANESTHESIA PLAN: normal airway, ASA III, Local Anesthesia, Risks, benefits & alternatives of sedation and/or procedure discussed and Patient agrees to continue as planned ADDITIONAL INFORMATION: Moderate sedation
--- NOTE | 2025-02-26 11:11 | PM.PROC ---
Procedure Note: Date of procedure: 02/26/25 Pre-procedure diagnosis: Unstable angina Post-procedure diagnosis: other (Patent coronary arteries) Procedure: Patent coronary arteries. Blood pressure control Performing Provider: Geraldo Hammond Estimated blood loss (mL): 5 Complications: None Condition: stable Disposition: floor Coding Level of Care Code Acute Code for [facility]
--- NOTE | 2025-02-26 11:38 | P.CONIM_ITS ---
<Statement entered by Geraldo Hammond M.D - 02/27/25 12:37> Patient was evaluated and cared for in conjunction with an advanced practice practitioner.? I personally examined the patient and reviewed the chart and all pertinent data including imaging, telemetry, and laboratory results.? I discussed the patient in detail with the advanced practice practitioner.? Please see? their note for complete consult note, testing results and agreed upon plan of care for the patient. Patient has ongoing chest pain event with better blood pressure control. EKG has ST depressions. Concern for unstable angina. We will proceed with coronary angiogram with possible PCI Aggressive blood pressure control GENERAL: Patient is alert, awake and oriented x3. HEART: Regular S1 and S2 LUNGS Clear to auscultation bilaterally. EXTREMITIES: Lower extremities with no edema Providers/Reason For Consult 2 Consulting Physician/Specialty*: Dr. Ngo Reason for Consult*: Unstable angina Requesting Physician: Dr. Franz Attending Physician: Angelica Franz MD Primary Care Provider: Lucio Aguirre DO History of Present Illness History of Present Illness Tony Phelps Jr is a 50 year old male with a history of COPD, current smoker, hypertension, hyperlipidemia, chronic pain, and anxiety presented to the emergency room yesterday with complaints of chest pain and pressure. He states he has had uncontrolled hypertension for a long time but has refused his previous medications for his own personal reasons . His PCP just recently increased his lisinopril to 20 mg but despite this he still had uncontrolled hypertension. He states that he has been having chest pressure on and off for the last 2 years but is gotten worse recently with it feeling like something sitting on his chest. He does not state that he has any relieving or aggravating factors. This does not radiate. Blood pressure on my exam is 156/90. Troponins were negative. He did have some ST depressions on EKG and some T wave inversions in the inferior lateral leads. He was given full dose aspirin, nitroglycerin, which did improve his chest pain. Patient was having chest pressure on my exam. He states it was improved to though. Review of Systems 2 Narrative: Consitutional: denies fever, chills, body aches, or changes in appetite, denies abnormal weight loss Eyes: Denies changes in vision Card: reports mild chest pressure across the chest, palpitations, irregular heart rhythm, edema, syncope, shortness of breath, orthopnea, leg pain with exertion Resp: Denies shortness of breath, denies hemoptysis, denies cough GI: denies abdominal pain, denies nausea or voimting, denies blood in stool : denies blood in urine, denies dysuria Musc: Denies extremity pain, denies limited range of motion or recent injury Skin: Denies rash, lesions, or wounds, denies changes to skin color Neuro: Denies nubmness in extremities, h/a, s/s of stroke [place]: Denies easy bruiding/bleeding Medications/Allergies Home Medications ?Medication ?Instructions ?Recorded ?Confirmed ?Last Taken ?Type Cam Boot to left #1 ea 09/06/23 02/26/25 Unkn own Rx albuterol sulfate 90 mcg/actuation 1 puff inhalation Q 6H PRN 09/06/23 02/26/25 Unknown History aerosol inhaler Shortness Of Breath esomeprazole magnesium 40 mg 40 mg PO QAM 09/06/2302/1702/25/25 History capsule,delayed release quetiapine 200 mg tablet 200 mg PO BEDTIME 09/06/23 0 02/26/25 02/25/25 History testosterone cypionate 200 mg/mL 200 mg SUBCUT Q7D 11/1702/26/25 02/23/25 History intramuscular oil ASO to left #1 ea 09/20/23 02/26/25 Unkn own Rx hydrocodone 5 mg-acetaminophen 325 1 tab PO Q6H PRN pa in 5 days #20 08/16/24 02/26/25 Unknown Rx mg tablet tabs diphenhydramine HCl 25 mg capsule 75 mg PO BEDTIME 02/1702/26/25 02/25/25 History (Benadryl) lisinopril 20 mg tablet 40 mg PO QAM 02/26/2502/25/25 History meloxicam 15 mg tablet 15 mg PO QAM 02/26/2502/26/25 History tizanidine 4 mg tablet 4 mg PO QID PRN Muscle Spasm 02/26/25 02/26/25 Unknown History Allergies Allergy/AdvReac Type Severity Reaction Status Date / Time gabapentin Allergy Unknown Unknown Verified 02/26/25 05:21 pseudoephedrine Allergy Unknown Unknown Verified 02/26/25 05:21 Sulfa (Sulfonamide Allergy ADR-Nausea Verified 08/16/24 11:57 Antibiotics) Current Medications Generic Name Dose Route Start Last Admin Trade Name Freq PRN Reason Stop Dose Admin Aspirin 81 mg 02/26/25 09:00 02/26/25 08:18 Aspirin 81 Mg Chew Tablet PO 81 mg DAILY LOI Administration Enoxaparin Sodium 100 mg 02/26/25 03:00 02/26/25 03:13 Enoxaparin 100 Mg/Ml Syringe SUBCUT 100 mg Q12H LOI Administration Hydralazine HCl 10 mg 02/26/25 04:43 02/26/25 11:35 Hydralazine 20 Mg/Ml Inj 1 Ml IVP 10 mg Q4H PRN Administration HYPERTENSION Hydromorphone HCl 1 mg 02/26/25 04:32 02/26/25 09:01 Hydromorphone 0.5 Mg/0.5 Ml Inj IVP 1 mg Q4H PRN Administration SEVERE PAIN Nicotine 1 patch 02/26/25 05:07 02/26/25 05:44 Nicotine 21 Mg Patch TRANSDERMA 1 patch DAILY PRN Administration NICOTINE WITHDRAWAL Nicotine Polacrilex 4 mg 02/26/25 05:08 02/26/25 08:18 Nicotine 4 Mg Lozenge MUCOUS MEM 4 mg Q2H PRN Administration NICOTINE CRAVINGS Pantoprazole Sodium 40 mg 02/26/25 06:00 02/26/25 04:55 Pantoprazole 40 Mg Sdv IVP 40 mg Q24H LOI Administration PFSH Acute 2 PFSH: Medical History (Updated 02/26/25 @ 11:43 by Dionne Geronimo NP) MDD (major depressive disorder) Has taken Prozac and Xanax and many other types of SSRIs etc. He quit taking the meds 2 yrs ago in 2022 and has felt fine since, except for occasional episodes of anxiety Anxiety disorder Has taken Prozac and Xanax and many other types of SSRIs etc. He quit taking the meds 2 yrs ago in 2022 and has felt fine since, except for occasional episodes of anxiety Chronic low back pain with bilateral sciatica GERD (gastroesophageal reflux disease) Hyperlipidemia COPD (chronic obstructive pulmonary disease) HTN (hypertension) Surgical History (Updated 02/26/25 @ 05:46 by Eliana Land MD) History of surgery on upper extremity History of nasal surgery History of appendectomy History of carpal tunnel surgery Family History (Updated 02/26/25 @ 05:42 by Eliana Land MD) Father Diabetes mellitus, type 2 Other Osteoporosis Social History (Updated 02/26/25 @ 05:40 by Eliana Land MD) Smoking and tobacco/nicotine status: current every day tobacco/nicotine user cigarettes Packs smoked per day: 2 Years cigarettes smoked: 34 [ Other cigarette details: started smoking at age 12. Started 2ppd by age 15 to 16. ] Quit status (tobacco/nicotine): has tried quititng Alcohol intake: current Alcohol intake frequency: holidays/special occasions only Alcohol use comment: May 29 and Maddy. He has the tolerance of a 10yo girl. Substance/Drug Use: current Substance/Drug use type: Marijuana Other substance/drug use details: consumes it as edibles. Smoking chokes him. Quit Meth etc in 05/27/2001 Additional social history: Primarily used (smoked,snorted,IV) and cooked Methamphetamines. Has tried every drug except Heroine, Fentanyl. Marital status: Vitals/I&O/Wt Last Vital Signs Temp 97.9 F 02/26/25 08:00 Pulse 91 02/26/25 11:20 Resp 12 02/26/25 11:20 BP 147/114 02/26/25 11:20 Pulse Ox 95 02/26/25 11:20 O2 Del Method Room Air 02/26/25 10:16 02/25/25 02/26/25 02/26/25 22:59 06:59 14:59 Intake Total 1000 / 1000 Balance 1000 / 1000 Weight last 48 hrs Weight 221 lb Weight 221 lb 3.2 oz Weight 231 lb Physical Exam 2 Narrative: General: No apparent distress, healthy appearing, well nourished HENMT: normoceophalic Neck: No carotid bruit bilaterally Respiratory: Normal respiratory effort, clear to auscultation bilaterally throughout all lung hernandez, no use of accessory muscles Cardio: No JVD, regular rate, regular rhythm, S1 S2 normal, no murmurs, peripheral pulses 2+ radial palpated bilaterally GI: Normal to inspection, nondistended Extremities: Full ROM, normal, normal capillary refill, no cyanosis or edema Neuro: Alert and oriented x4, no focal motor deficits Psych: Affect normal, denies suicidal ideation, mental status grossly normal Skin: No rashes or lesions noted, no wounds Data 02/26/25 05:28 02/26/25 05:28 A&P Assessment and plan (1) Chest pain: Qualifiers: Chest pain type: unspecified Qualified Code(s): R07.9 - Chest pain, unspecified (2) Unstable angina: (3) Essential hypertension: (4) Smoker: (5) Hypercholesteremia: Plan Patient states he is having active chest pressure. Although this could be due to hypertension and troponins are negative patient does have signs and symptoms of typical angina with EKG changes. Due to this it was discussed with the patient about proceeding with a heart cath versus stress test. At this time patient would rather go for an angiogram. Patient was taken for left heart cath possible PCI today. Will need to focus on bp control as well. Recommend restarting home lisinopril. Possibly adding beta yesi for increased heart rate. Thank you, Dr. Franz, for allowing us to care for this very pleasant 50 year old gentleman. PDMP PDMP Reviewed: Not Reviewed Consult Attestations 2 Medical Necessity Statement: Deferred to primary. Coding Level of Care Code Acute Code for [facility] Fwd Diagnoses Chest pain, unspecified type R07.9 Chest pain type: unspecified Unstable angina I20.0 Essential hypertension I10 Smoker F17.200 Hypercholesteremia E78.00
[2025-02-26] MEDS: amlodipine 10 mg Tablet PO (12:30)
[2025-02-26] MEDS: lisinopril 20 mg Tablet 40 MG PO (12:30)
[2025-02-26] MEDS: ALPRAZolam 0.5 mg Tablet PO ×2 (15:35→20:14)
--- NOTE | 2025-02-26 16:40 | P.MISC_ITS ---
Miscellaneous Note Purpose of Documentation: s/p angiogram this am with clean coronaries. No active chest pain. BP uncot nrolled, he has just received amlodipine 10 mg. Add metorolol. Continue prn hydralazine. Reports h/o sleep apnea, last tested 15 years ago. reports excessice snoring - check overnight oximtery study- untreated sleep apnea ma be contributing. 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 Bacilio obtain KAREN screen.
[2025-02-26] MEDS: metoprolol tartrate 25 mg Tablet 12.5 MG PO (16:59)
[2025-02-26 17:07] LABS: D Dimer <= 0.27 ug/mLFEU (0-0.59)
[2025-02-26] MEDS: quetiapine 100 mg Tablet 200 MG PO (20:13)
[2025-02-26] MEDS: acetaminophen 325 mg Tablet 650 MG PO (20:14)
[2025-02-26] MEDS: diphenhydrAMINE 25 mg Capsule PO (21:25)
[2025-02-26] MEDS: carvedilol 6.25 mg Tablet PO (21:26)
[2025-02-27] VITALS (9 sets, daily range): BP systolic 124–183; BP diastolic 68–104; PULSE 67–83; RESP 14–18; TEMP 36.4–36.7; O2SAT 93–96; BMI 31.7
[2025-02-27] MEDS: hyDRALAzine 20 mg/mL INJ 1 mL 10 MG IVP ×2 (04:34→11:38)
[2025-02-27 05:58] LABS: Basophils # 0.1 10^3/uL (0.0-0.1); Basophils % 0.6 %; Eosinophils # 0.1 10^3/uL (0.0-0.8); Eosinophils % 1.3 %; Hematocrit 48.9 % (37-53); Lymphocytes # 1.7 10^3/uL (0.8-4.8); Lymphocytes % 17.8 %; Mean Corpuscular HGB Conc 33.5 g/dL (30-55); Mean Corpuscular Hemoglobin 29.8 pg (27-33); Mean Corpuscular Volume 88.9 fl (82-101); Mean Platelet Volume 10.8 fL (7.4-10.4); Monocytes # 0.5 10^3/uL (0.2-0.9); Monocytes % 4.6 %; Neutrophils # 7.38 10^3/uL (1.8-7.7); Neutrophils % 75.3 %; Nucleated Red Blood Cells % 0 %; Platelet Count 294 10^3/cmm (157-399); Red Cell Distribution Width 13.2 % (12.1-15.1)
[2025-02-27] MEDS: acetaminophen 325 mg Tablet 650 MG PO (06:17)
[2025-02-27] MEDS: nicotine 21 mg Patch 1 PATCH TRANSDERMA (06:18)
[2025-02-27] MEDS: pantoprazole DR 40 mg Tablet PO (06:18)
[2025-02-27 06:25] LABS: Alanine Aminotransferase 26 U/L (0-41); Albumin Level 4.6 g/dL (3.5-5.2); Alkaline Phosphatase 77 U/L (40-130); Anion Gap 15.8 (5-19); Aspartate Amino Transferase 14 U/L (0-40); Blood Urea Nitrogen 13 mg/dL (6-20); Calcium 9.3 mg/dL (8.5-10.5); Carbon Dioxide 23 mmol/L (22-29); Chloride 102 mmol/L (98-107); Creatinine Clr Calc Pharmacy 96.3975; Globulin 2.6 g/dL (1.3-4.6); Glomerular Filtration Rate 71.1 mL/min (90-130); Glucose 126 mg/dL (65-115); Osmolality Calculated 286 mOsm/kg (285-295); Potassium 3.8 mmol/L (3.5-5.1); Sodium 137 mmol/L (136-145); Total Bilirubin 0.8 mg/dL (0.15-1.2); Total Protein 7.2 g/dL (6.6-8.7)
[2025-02-27] MEDS: nicotine 4 mg lozenge MUCOUS MEM ×2 (06:31→11:13)
[2025-02-27 06:33] LABS: Magnesium 2.2 mg/dL (1.7-2.3)
[2025-02-27] MEDS: carvedilol 6.25 mg Tablet PO (08:32)
[2025-02-27] MEDS: lisinopril 20 mg Tablet 40 MG PO (08:32)
[2025-02-27] MEDS: aspirin 81 mg Chew Tablet PO (08:32)
[2025-02-27] MEDS: amlodipine 10 mg Tablet PO (08:32)
[2025-02-27] MEDS: HYDROmorphone 0.5 MG/0.5 ML INJ 1 MG IVP (08:47)
--- NOTE | 2025-02-27 10:25 | CT_ITS ---
WS: [id number] CT HEAD NONCONTRAST HISTORY: evalute for bleeding TECHNIQUE: Contiguous axial imaging performed through the brain. Bone and soft tissue windows. Sagittal and coronal reformats reviewed. All CT scans at [facility] use at least one of these dose optimization techniques: automated exposure control; mA and/or kV adjustment per patient size (includes targeted exams where dose is matched to clinical indication); or iterative reconstruction. DLP: 1167.88 mGy.cm COMPARISON: None available. No acute intracranial hemorrhage, midline shift or mass effect. No significant atrophy. There are a few scattered calcifications in the posterior RIGHT cerebellum of uncertain etiology. May be from a prior insult. There is muscle mild asymmetry of the dural sinuses. RIGHT transverse sinus more prominent. Small caliber LEFT transverse sinus and sigmoid sinus although no thrombus identified by noncontrast CT. Mild increased attenuation along the tentorium is smooth and symmetric. Ventricles: Normal size with no hydrocephalus. No inferior displacement of the cerebellar tonsils. Paranasal sinuses: As visualized are clear. Mastoid air cells: Well pneumatized. Calvarium and scalp: Skull is intact with no soft tissue edema or swelling. CT/CT head wo con* 15007 IMPRESSION: 1. No acute intracranial hemorrhage or edema identified. 2. Dystrophic type calcifications in the RIGHT cerebellum of uncertain etiolog y. Recommend follow-up MRI brain with contrast. No prior study for comparison. Underlying mass should be excluded. 3. Mild asymmetry of the dural venous sinuses. No thrombus identified.
[2025-02-27] MEDS: ketorolac 30 mg/mL INJ IVP (13:12)
[2025-02-27 13:57] LABS: Erythrocyte Sedimentation Rate 5 mm/hr (0-10)
[2025-02-27] MEDS: SUMAtriptan 25 mg Tablet PO (14:03)
--- NOTE | 2025-02-27 16:09 | P.PN_ITS ---
<Statement entered by Luis Daniel Dickson MD - 02/28/25 01:14> Patient was evaluated and cared for in conjunction with an advanced practice practitioner. Please note that I have not personally examined the patient but I have reviewed the chart and all pertinent data including imaging, telemetry, and laboratory results. I discussed the patient in detail with the advanced practice practitioner. Please see their note for complete H&P testing result and agreed upon plan of care for the patient. Subjective 2 Subjective: Patient doing well. Cath site looks good. He was seen this morning on rounds. BP is still slightly elevated but better controlled. Vitals/I&O/Wt Last Vital Signs Temp 97.9 F 02/27/25 13:23 Pulse 83 02/27/25 13:23 Resp 17 02/27/25 13:23 BP 148/104 02/27/25 13:23 Pulse Ox 96 02/27/25 13:23 O2 Del Method Room Air 02/27/25 11:13 02/27/25 02/27/25 02/27/25 06:59 14:59 22:59 Intake Total 640 / 640 Balance 640 / 640 Weight last 48 hrs Weight 221 lb Weight 221 lb Weight 221 lb 3.2 oz Weight 231 lb Physical Exam 2 Narrative: General: No apparent distress, healthy appearing, well nourished HENMT: normoceophalic Neck: No carotid bruit bilaterally Respiratory: Normal respiratory effort, clear to auscultation bilaterally throughout all lung hernandez, no use of accessory muscles Cardio: No JVD, regular rate, regular rhythm, S1 S2 normal, no murmurs, peripheral pulses 2+ radial palpated bilaterally GI: Normal to inspection, nondistended Extremities: Full ROM, normal, normal capillary refill, no cyanosis or edema Neuro: Alert and oriented x4, no focal motor deficits Psych: Affect normal, denies suicidal ideation, mental status grossly normal Skin: Right radial sight clean, dry, intact w/o s/s of hematoma Data 02/27/25 04:54 02/27/25 04:54 A&P Assessment and plan (1) Chest pain: Qualifiers: Chest pain type: unspecified Qualified Code(s): R07.9 - Chest pain, unspecified (2) Unstable angina: (3) Essential hypertension: (4) Smoker: (5) Hypercholesteremia: Plan From cardiology perspective, patient may be discharged on current medications. He was encouraged to keep a blood pressure log and bring it to us in the clinic during his visit to evaluate. PDMP PDMP Reviewed: Not Reviewed Attestations 2 Medical Necessity Statement*: May be discharged from cardiology perspective. Coding Level of Care Code Acute Code for [facility] Fwd Diagnoses Chest pain, unspecified type R07.9 Chest pain type: unspecified Unstable angina I20.0 Essential hypertension I10 Smoker F17.200 Hypercholesteremia E78.00
--- NOTE | 2025-02-27 21:22 | USCV_ITS ---
Tony Phelps Age: 50 Gender: M : 1975 Exam Date: 02/27/2025 07:26 Ordering Phys: Eliana Land MD Technologist: Exam Location: [facility] [place] Indication: cp tach BP: 134 / 73 HR: 88 Rhythm: Sinus Technical Quality: Adequate MEASUREMENTS (Male / Female) Normal Values 2D ECHO LV Diastolic Diameter PLAX 5.1 cm 4.2 - 5.9 / 3.9 - 5.3 cm IVS Diastolic Thickness 1.4 cm 0.6 - 1.0 / 0.6 - 0.9 cm IVS Systolic Thickness 2.0 cm LVPW Diastolic Thickness 1.4 cm 0.6 - 1.0 / 0.6 - 0.9 cm LVPW Systolic Thickness 1.7 cm LVOT Diameter 2.2 cm LV Ejection Fraction 2D Teich 68.9 % LV Ejection Fraction MOD 4C 58.8 % LV Ejection Fraction MOD 2C 65.6 % LV Ejection Fraction 2C AL 68.3 % LA Diameter 3.4 cm RA Systolic Volume 4C AL 33.4 ml RA Systolic Volume 4C MOD 29.3 ml Aorta at Sinotubular Diameter 3.4 cm IVC Diameter 1.9 cm M-MODE LA Ao Ratio MM 1.3 AV Cusp Separation MM 3.4 cm DOPPLER AV Peak Velocity 152.0 cm/s LVOT Peak Velocity 93.0 cm/s AV Area Cont Eq vti 3.0 cm squared AV Area Cont Eq pk 2.3 cm squared MV Peak Velocity 95.7 cm/s MV Area PHT 3.9 cm squared Mitral E to A Ratio 0.9 TR Peak Velocity 211.0 cm/s TR Peak Gradient 17.8 mmHg TV Peak E Velocity 109.0 cm/s PV Peak Velocity 117.0 cm/s FINDINGS Left Ventricle Normal left ventricular size, systolic function and wall thickness, with no regional wall motion abnormalities. Left ventricular ejection fraction is estimated at 60 %. Grade I/IV diastolic dysfunction (abnormal relaxation filling pattern), normal to mildly elevated filling pressures. Right Ventricle The right ventricle is normal in size and function. Right Atrium The right atrium is normal in size. Left Atrium The left atrium is normal in size. Mitral Valve No mitral valve stenosis. Trace mitral valve regurgitation. Aortic Valve Mild aortic valve calcification. No aortic valve stenosis. Trace aortic valve regurgitation. Tricuspid Valve Structurally normal tricuspid valve. No tricuspid valve stenosis. Trace tricuspid valve regurgitation. Pulmonic Valve Structurally normal pulmonic valve without significant stenosis. There is no pulmonic regurgitation. Pericardium Normal pericardium without effusion. Aorta Normal ascending aorta dimension. IVC The inferior vena cava appears normal. CONCLUSIONS Normal left ventricular size, systolic function and wall thickness, with no regional wall motion abnormalities. Left ventricular ejection fraction is estimated at 60 %. Grade I/IV diastolic dysfunction (abnormal relaxation filling pattern), normal to mildly elevated filling pressures. Mild aortic valve calcification. No aortic valve stenosis. Trace aortic valve regurgitation. No mitral valve stenosis. Trace mitral valve regurgitation. There is no pericardial effusion. Right atrial pressure is around 5 mm of mercury. Luis Daniel Dickson MD (Electronically Signed) Final Date: 27 February 2025 23:40 S
[2025-02-28 07:19] LABS: COMPLEMENT COMPONENT C3C 170 mg/dL (82-185); COMPLEMENT COMPONENT C4C 36 mg/dL (15-53)
[2025-03-02 12:09] LABS: THYROID PEROXIDASE ANTIBODIES 9 IU/mL (<9)
[2025-03-02 14:55] LABS: COMPLEMENT, TOTAL (CH50) >60 U/mL (31-60)
[2025-03-02 15:33] LABS: CENTROMERE B ANTIBODY <1.0 NEG AI (<1.0 NEG); JO-1 ANTIBODY <1.0 NEG AI (<1.0 NEG); RNP ANTIBODY <1.0 NEG AI (<1.0 NEG); SCL-70 ANTIBODY <1.0 NEG AI (<1.0 NEG); SJOGREN'S ANTIBODY (SS-A) <1.0 NEG AI (<1.0 NEG); SM ANTIBODY <1.0 NEG AI (<1.0 NEG); SS-B <1.0 NEG AI (<1.0 NEG)
[2025-03-02 17:04] LABS: Cyclic Citrullinated Peptide <16 UNITS
[2025-03-03 16:59] LABS: ANA SCREEN, IFA NEGATIVE (NEGATIVE)
[2025-03-04 23:09] LABS: DNA AB (DS) CRITHIDIA,IFA NEGATIVE (NEGATIVE)
== END 2025-02-27 15:40 | disposition home or self-care (01) ==
LOC: ER 02-26 02:16 → MEDSURG 02-26 02:57
PROVIDERS: Internal Medicine; Nurse Practitioner Family; Student in an Organized Health Care Education/Training Program; Admitting Provider Internal Medicine; Emergency Provider Emergency Medicine; PCP Family Medicine; Visit Provider Student in an Organized Health Care Education/Training Program
DX: I20.0 Unstable angina (principal); I10 Essential (primary) hypertension; E78.00 Pure hypercholesterolemia, unspecified; J44.9 Chronic obstructive pulmonary disease, unspecified; G89.29 Other chronic pain; F41.9 Anxiety disorder, unspecified; K21.9 Gastro-esophageal reflux disease without esophagitis; F32.9 Major depressive disorder, single episode, unspecified; F17.210 Nicotine dependence, cigarettes, uncomplicated; R68.82 Decreased libido; G47.30 Sleep apnea, unspecified; Z79.82 Long term (current) use of aspirin; Z98.1 Arthrodesis status
CPT/HCPCS: 36415; 70450; 71045; 80053; 80061; 80306; 81001; 83036; 83735; 83880; 84100; 84439; 84443; 84484; 85025; 85378; 85610; 85651; 85730; 86140; 86160; 86162; 86200; 86235; 86255; 86376; 86431; 93005; 93306; 93458; 94664; 94762; 96367; 96372; 96374; 96375; 99152; 99285; C1769; C1887; C1894; G0378; J0360; J1171; J1644; J1650; J1885; J2250; J2470; J3010; J3490; J7030; J9999; Q9967

== ENCOUNTER → 2025-03-16 09:36 | Outpatient (BNVA) | payer MEDICARE, SELFPAY | PROVIDERS: PCP Family Medicine; Visit Provider Nurse Practitioner Family | DX: I10 Essential (primary) hypertension (principal); R07.9 Chest pain, unspecified; I20.0 Unstable angina; E78.00 Pure hypercholesterolemia, unspecified; Z09 Encounter for follow-up examination after completed treatment for conditions other than malignant neoplasm; Z87.891 Personal history of nicotine dependence | CPT/HCPCS: 36415; 80053; 80061; 82550; 99213 ==

== ENCOUNTER 2025-05-19 20:00 | Outpatient (CLI) | payer MEDICARE, SELFPAY | END 2025-05-19 20:01 | disposition home or self-care (01) | LOC: SLEEP 05-20 03:13 | PROVIDERS: PCP Family Medicine; Referring Provider Student in an Organized Health Care Education/Training Program; Visit Provider Internal Medicine Pulmonary Disease | DX: G47.34 Idiopathic sleep related nonobstructive alveolar hypoventilation (principal) | CPT/HCPCS: 95810 ==

== ENCOUNTER → 2025-10-07 10:20 | Outpatient (BNVA) | payer MEDICARE, SELFPAY | PROVIDERS: PCP Family Medicine; Visit Provider Internal Medicine Rheumatology | DX: R76.89 Other specified abnormal immunological findings in serum (principal); M15.9 Polyosteoarthritis, unspecified | CPT/HCPCS: 99204 ==